=== PATIENT | male | born 1975 | race Caucasian/White ===

== ENCOUNTER 2023-11-27 09:06 | Emergency (ER) | payer BC, OTHER ==
[2023-11-27] MEDS ORDERED: ceFAZolin 1 GM Vial IVPUSH ONE (09:20)
[2023-11-27] MEDS: Ondansetron 4 MG/2 ML SDV IVPUSH ONE (09:35)
[2023-11-27] MEDS: Morphine 4 MG/ML Syringe IVPUSH ONE (09:36)
[2023-11-27] MEDS: ceFAZolin 1 GM in Sodium Chloride 0.9% 50 ML IV ONE (09:45)
[2023-11-27] MEDS: Lidocaine 1% 10 ML MDV INJECT ONE (10:17)
[2023-11-27] MEDS: Diphtheria,Pertussis(Acell),Tetanus Vaccine 0.5 ML Syringe IM ONE (11:01)
[2023-11-27 13:17] VITALS: BP 126/82; PULSE 85
== END 2023-11-27 11:05 | disposition home or self-care (01) ==
LOC: JD.ED 09:06
DX: S61.412A Laceration without foreign body of left hand, initial encounter (principal); Z79.899 Other long term (current) drug therapy; Z23 Encounter for immunization; W26.8XXA Contact with other sharp object(s), not elsewhere classified, initial encounter; Y93.89 Activity, other specified
CPT/HCPCS: 12004; 73120; 90471; 90715; 96365; 96375; 99283; J0690; J2270; J2405; J3490; 12001; 99284